=== PATIENT | male | born 1950 | race Caucasian/White ===

== ENCOUNTER 2019-08-31 23:34 | Observation (INO) ==
--- OUTSIDE RECORDS SUMMARY | 2019-08-31 23:37 | External Medical Summary | Continuity of Care Document ---
:1950 Author Name Allan Garduno, Provider Address Unavailable Unavailable , Care Team Providers Name Role Phone Lety Lopez PA-C Unavailable [email or web address] LATASHA ATKINSON Unavailable Unavailable Unavailable Unavailable Unavailable Problems Testicular pain (608.9) (N50.819) Hypertension (401.9) (I10) Squamous cell carcinoma of skin (173.92) (C44.92) Restless legs syndrome (333.94) (G25.81) Disorder of male genital organs (608.9) (N50.9) Allergies and Adverse Reactions Penicillins (Allergy) Medications Omeprazole 20 MG Oral Capsule Delayed Release; TAKE 1 CAPSULE TWICE DAILY. ADRIÁN Lopez Start: 01-May-2012 Refills: 0 Lisinopril 10 MG Oral Tablet ADRIÁN Lopez Start: Refills: 0 rOPINIRole HCl - 1 MG Oral Tablet; TAKE 1 TABLET AT BEDTIME. ADRIÁN Lopez Start: 01-May-2012 Refills: 0 Procedures History of Umbilical Hernia Repair - Over Age 5 Status: Completed History of Inguinal Hernia Repair Status : Completed History of Knee Arthroscopy With Medial And Lateral Meniscus Status: Completed Repair Immunizations Immunizations not documented Social History - Smoking Status Never smoked tobacco Plan of Treatment Planned Observations Planned Goals not documented Results No Known Results Results not documented
--- OUTSIDE RECORDS SUMMARY | 2019-08-31 23:37 | External Medical Summary | Continuity of Care Document ---
:1950 Author Name Allan Garduno, Provider Address Unavailable Unavailable , Care Team Providers Name Role Phone Lety Lopez PA-C Unavailable [email or web address] LATASHA ATKINSON Unavailable Unavailable Unavailable Unavailable Unavailable Problems Testicular pain (608.9) (N50.819) Squamous cell carcinoma of skin (173.92) (C44.92) Restless legs syndrome (333.94) (G25.81) Disorder of male genital organs (608.9) (N50.9) Hypertension (401.9) (I10) Allergies and Adverse Reactions Penicillins (Allergy) Medications [...]
[2019-09-01] MEDS ORDERED: SODIUM CHLORIDE 0.9% 1000ML 1,000 ML IV ONE ×2 (00:13→03:51)
[2019-09-01] MEDS ORDERED: HYDROCODONE/HOMATROPINE SYRUP 5MG/1.5MG 5ML UDP PO STA (00:13)
[2019-09-01] MEDS ORDERED: ALBUT/IPRATROP 3MG/0.5MG NEB 3 ML VIAL NEB ONE (00:13)
[2019-09-01] MEDS ORDERED: methylPREDNISolone 125 MG/2 ML VIAL IV STA (00:13)
[2019-09-01 00:50] LABS: Basophils # (auto) 0.05 K/uL (0-0.2); Basophils % (auto) 0.6 %; Eosinophils # (auto) 0.87 K/uL (0-0.5); Hematocrit (blood only) 45.3 % (42-52); Hemoglobin 15.3 g/dL (14.0-18.0); Immature Granulocytes # (auto) 0.07 K/uL (0.00-0.02); Immature Granulocytes % (auto) 0.8 %; Lymphocytes # (auto) 3.42 K/uL (1.2-3.4); Lymphocytes % (auto) 39.2 %; Mean Corpuscular Hemoglobin 32.4 pg (25-34); Mean Corpuscular Hgb Conc 33.8 g/dL (32-36); Mean Platelet Volume 9.6 fL (7.4-10.4); Monocytes # (auto) 1.03 K/uL (0.11-0.59); Monocytes % (auto) 11.8 %; Neutrophils # (auto) 3.28 K/uL (1.4-6.5); Neutrophils % (auto) 37.6 %; Platelet Count 286 K/uL (130-400); RDW Coefficient of Variation 13.3 % (11.5-14.5); RDW Standard Deviation 46.3 fL (36.4-46.3); Red Blood Count 4.72 M/uL (4.7-6.1); White Blood Count 8.72 K/uL (4.8-10.8)
[2019-09-01 00:57] LABS: Influenza A virus by PCR Neg for Influ A (Neg); Influenza B virus by PCR Neg for Influ B (Neg)
[2019-09-01 01:10] LABS: Base Excess VBG -1.8 mEq/L; pH VBG 7.35 (7.36-7.41)
[2019-09-01 01:15] LABS: Albumin Level 3.5 gm/dl (3.4-5.0); BUN Creatinine Ratio 14.2 (10-20); Calcium 8.1 mg/dl (8.5-10.1); Creatinine Clr Calc Pharmacy 83.4 ml/min; Est GFR (African American) 95.6; Est GFR (Non-African American) 82.5; Magnesium 2.2 mg/dl (1.8-2.4); Potassium 4.4 mmol/L (3.5-5.1)
[2019-09-01 01:26] LABS: Bilirubin,Total 0.4 mg/dl (0.2-1); Total Protein 7.1 gm/dl (6.4-8.2)
[2019-09-01] MEDS ORDERED: AZITHROMYCIN 500 MG in DEXTROSE 5% 250 ML IV ONE (01:39)
[2019-09-01] MEDS ORDERED: cefTRIAXone SODIUM 2,000 MG/70 ML BAG IV STA (01:39)
--- NOTE | 2019-09-01 02:12 | History & Physical Report ---
Date of Service September 01, 2019 Assessment & Plan (1) Bronchitis, complicated: Protracted symptoms No sepsis Troponin elevation secondary to illness hypertension, stable GERD, stable past tobacco abuse OBS Medical telemetry Trend troponin TTE RE abnormal troponin Doxycycline, nebs, prednisone course Pulmonary consult if without improvement RE protracted bronchitis DVT prophylaxis. Lovenox subcu Full code Text document was generated using [employer] voice recognition software. It may contain grammatical or spelling errors. Kindly contact undersigned for clarification of any documentation item in question. . History of Present Illness Chief Complaint: Cough, S OB Primary Care Provider: Imtiaz Will DO History obtained from patient and records. Medical history significant for hypertension, hyperlipidemia, GERD, restless leg syndrome, possible SRIDHAR, past tobacco abuse. Recent confinement July 2016 for syncope attributed to alcohol intake. Patient seen at PCPs office May 2019 for sinusitis symptoms. Patient prescribed Z-Galdino, Mucinex, fluticasone course which never fully relieved symptoms. Denies aspiration or uncontrolled GERD symptoms. The last 2 weeks patient noted worsening junky cough symptoms with shortness of breath. No actual chest pain. No known sick contacts. At the ER, patient received Solu-Medrol, nebs, azithromycin for bronchitis. Medical History as above Surgical History : Dental surgery, hernia repair, umbilical hernia repair, knee surgery Family History : Skin cancer, diabetes Personal/Social history : Past tobacco abuse, occasional EtOH intake, retired from retail store employment Allergies Allergy/AdvReac Type Severity Reaction Status Date / Time Penicillins Allergy Unknown RASH Verified 09/01/19 01:34 Home Medications Home Medications Medication Instructions Recorded Confirmed Type clonazepam 0.5 - 1 mg PO HS PRN 09/01/19 09/01/19 History lisinopril-hydrochlorothiazide 1 tab PO DAILY 09/01/19 09/01/19 History omeprazole 40 mg PO DAILY 09/01/19 09/01/19 History ropinirole 2 mg PO HS 09/01/19 09/01/19 History Past Med/Surg History Medical History Hypertension (Chronic) Surgical History No pertinent past surgical history Social History Preferred Language: Portuguese Communication Ability: Effective Revenue Investigator Required: No Beliefs That Will Affect Care: None Feels Safe at Home: Yes Smoking Status: Current every day smoker Tobacco Type: cigars ; Cigarettes Per Day: 3 ; Tobacco Cessation Education Requested by Patient: No Hx Alcohol Use: Yes Alcohol type: hard liquor Hx Substance Use: No Review of Systems Review of Systems: As per HPI, all 10 systems reviewed, all other ROS negative Physical Exam Physical Exam: GENERAL: Comfortable,, pleasant, slightly anxious, no respiratory distress SKIN: Normal color, warm HEENT: Pease palpebral conjunctivae, no ptosis, dry buccal mucosa, O2 mask in place NECK : Supple, short neck, no tenderness CHEST : Decreased breath sounds, no tenderness HEART : RRR, no obvious murmurs ABDOMEN: Some distention, nontender EXTREMITIES : No LE swelling/tenderness, no other conspicuous deformities noted NEUROLOGIC : Coherent, no facial asymmetry, no other gross focality Results & Data Vital Signs (Past 12 Hours) Vital Signs Temp Pulse Pulse Pulse Resp BP BP 09/01/19 01:31 71 20 124/63 09/01/19 00:47 67 24 127/71 09/01/19 00:40 68 16 09/01/19 00:19 71 24 116/64 08/31/19 23:42 36.7 C 84 22 151/76 H Pulse Ox 09/01/19 01:31 98 09/01/19 00:47 98 09/01/19 00:40 96 09/01/19 00:19 93 08/31/19 23:42 96 Laboratory Results Laboratory Results WBC 8.72 K/uL (4.8-10.8) 09/01/19 00:36 RBC 4.72 M/uL (4.7-6.1) 09/01/19 00:36 Hgb 15.3 g/dL (14.0-18.0) 09/01/19 00:36 Hct 45.3 % (42-52) 09/01/19 00:36 MCV 96.0 fL (80-100) 09/01/19 00:36 MCH 32.4 pg (25-34) 09/01/19 00:36 MCHC 33.8 g/dL (32-36) 09/01/19 00:36 RDW Std Deviation 46.3 fL (36.4-46.3) 09/01/19 00:36 RDW Coeff of Geoffrey 13.3 % (11.5-14.5) 09/01/19 00:36 Plt Count 286 K/uL (130-400) 09/01/19 00:36 MPV 9.6 fL (7.4-10.4) 09/01/19 00:36 Immature Gran % (Auto) 0.8 % 09/01/19 00:36 Neut % (Auto) 37.6 % 09/01/19 00:36 Lymph % (Auto) 39.2 % 09/01/19 00:36 [place] % (Auto) 11.8 % 09/01/19 00:36 Eos % (Auto) 10.0 % 09/01/19 00:36 Baso % (Auto) 0.6 % 09/01/19 00:36 Immature Gran # (Auto) 0.07 K/uL (0.00-0.02) H 09/01/19 00:36 Neut # (Auto) 3.28 K/uL (1.4-6.5) 09/01/19 00:36 Lymph # (Auto) 3.42 K/uL (1.2-3.4) H 09/01/19 00:36 [place] # (Auto) 1.03 K/uL (0.11-0.59) H 09/01/19 00:36 Eos # (Auto) 0.87 K/uL (0-0.5) H 09/01/19 00:36 Baso # (Auto) 0.05 K/uL (0-0.2) 09/01/19 00:36 VBG pH 7.35 (7.36-7.41) L 09/01/19 00:57 VBG pCO2 44 mmHg (38-50) 09/01/19 00:57 VBG pO2 57 mmHg 09/01/19 00:57 VBG HCO3 24 mmol/L 09/01/19 00:57 VBG O2 Saturation 89.0 % 09/01/19 00:57 VBG Base Excess -1.8 mEq/L 09/01/19 00:57 Barometric Pressure 726.4 mm/Hg 09/01/19 00:57 Sodium 138 mmol/L (136-145) 09/01/19 00:36 Potassium 4.4 mmol/L (3.5-5.1) 09/01/19 00:36 Chloride 107 mmol/L (98-107) 09/01/19 00:36 Carbon Dioxide 23 mmol/L (21-32) 09/01/19 00:36 Anion Gap 8.0 (3-11) 09/01/19 00:36 BUN 14 mg/dl (7-18) 09/01/19 00:36 Creatinine 0.95 mg/dl (0.6-1.4) 09/01/19 00:36 Est Cr Clr Drug Dosing 83.4 ml/min 09/01/19 00:36 Est GFR ( Amer) 95.6 09/01/19 00:36 Est GFR (Non-Af Amer) 82.5 09/01/19 00:36 BUN/Creatinine Ratio 14.2 (10-20) 09/01/19 00:36 Glucose 101 mg/dl (70-99) H 09/01/19 00:36 Lactate 1.5 mmol/L (0.4-2.0) 09/01/19 00:36 Calcium 8.1 mg/dl (8.5-10.1) L 09/01/19 00:36 Magnesium 2.2 mg/dl (1.8-2.4) 09/01/19 00:36 Total Bilirubin 0.4 mg/dl (0.2-1) 09/01/19 00:36 Direct Bilirubin mg/dl (0-0.2) 09/01/19 00:36 AST 44 U/L (15-37) H 09/01/19 00:36 ALT 36 U/L (12-78) 09/01/19 00:36 Alkaline Phosphatase 74 U/L (45-117) 09/01/19 00:36 Troponin I ng/ml (0-0.045) 09/01/19 00:36 Total Protein 7.1 gm/dl (6.4-8.2) 09/01/19 00:36 Albumin 3.5 gm/dl (3.4-5.0) 09/01/19 00:36 Specimen Hemolysis 09/01/19 00:36 Influenza Type A (PCR) Neg for Influ A (Neg) 09/01/19 00:15 Influenza Type B (PCR) Neg for Influ B (Neg) 09/01/19 00:15 Diagnostic Findings Chest initial read: No pulmonary emboli. Mild diffuse bronchial wall thickening suggesting bronchitis. Atelectasis versus early infiltrate. No pneumothorax or pleural effusion. EKG as per my interpretation: Rate 70, NSR, normal axis, no ischemia
[2019-09-01] MEDS ORDERED: PNEUMOCOCCAL ADMINISTRATION CHARGE ONE (02:15)
[2019-09-01] MEDS ORDERED: PNEUMOCOCCAL POLYSACCHARIDES 25 MCG/0.5 ML VIAL/SYR IM ONE (02:15)
[2019-09-01 03:04] LABS: Partial Thromboplastin Time 26.9 Seconds (21.0-31.0); Prothrombin Time 9.8 Seconds (9.0-12.0)
[2019-09-01 03:07] LABS: Troponin I 0.088 ng/ml (0-0.045)
[2019-09-01] MEDS ORDERED: OPTIRAY 320 125ml IV PRN (03:33)
[2019-09-01] MEDS ORDERED: TRAMADOL HCL 50 MG TABLET PO PRN (03:51)
[2019-09-01] MEDS ORDERED: PROMETHAZINE HCL 12.5 MG in SODIUM CHLORIDE 0.9% 50 ML IV PRN (03:51)
[2019-09-01] MEDS ORDERED: ACETAMINOPHEN 325 MG TAB PO PRN (03:51)
[2019-09-01] MEDS ORDERED: DOXYCYCLINE HYCLATE 100 MG in DEXTROSE 5% 100 ML IV STA (03:51)
[2019-09-01] MEDS ORDERED: CALCIUM GLUCONATE 10% 1,000 MG in SODIUM CHLORIDE 0.9% 50 ML IV STA (05:21)
[2019-09-01] MEDS ORDERED: lisinopriL 20 MG TAB PO SCH ×2 (05:30→09:00)
--- NOTE | 2019-09-01 06:12 | Emergency Department Note ---
Entered by Juliana Interiano acting as a scribe for Roger Payne MD ED Provider Note Name: MARISOL HINSON Age: 69 Arrives Via: Walk-In Informant: Patient CC: Cough HPI: 69M arrives for evaluation of cough that worsened over the past few days. The patient notes that he has been intermittently sick for the past few months, but over the past few days it seemed to worsen. He complains of cough with sputum and congestion with runny nose. He also notes that he has been running a fever. The patient has been smoking cigars for about a year, and denies history of lung issues. The patient takes Lisinopril for hypertension. The patient denies chest pain. The patient confirms that he did get a flu shot this year. He has not travelled anywhere recently. He notes that he was drinking alcohol earlier tonight. ROS: See above HPI for pertinent positives & negatives. A total of 10 systems reviewed and were otherwise negative. Past Medical History:Hypertension, GERD, DLP, Restless Legs Past Surgical History:No past surgical history Family History:No pertinent past surgical history Social History:Smokes cigars, nightly etoh, retired Home Medications:See Below Allergies:Penicillins Vitals:BP: 151/76 Pulse: 84 Resp: 22 Temp: 36.7 O2 Sat: 96 Physical Exam: GENERAL: Patient is significantly ill appearing and in moderate distress. Smells slightly of alcohol. EYES: No scleral icterus, unremarkable pupils. ENT: Mucous membranes moist, no nasal congestion. NECK: No masses appreciated, nomeningismus, trachea is midline. RESPIRATORY: Diffuse wheezing with very tight lung sound. Productive cough. Dyspneic. CARDIOVASCULAR: Regular rate and rhythm.No murmurs, rubs, gallops appreciated. GASTROINTESTINAL: Abdomen soft, non-tender, no peritonitis.Bowel sounds positive.No masses appreciated. BACK: No midline tenderness, no CVA tenderness EXTREMITIES: Normal motion all extremities, no cyanosis, no edema. NEUROLOGIC: Alert and oriented, no acute motor or sensory deficits, no focal weakness, cranial nerves grossly intact. SKIN: No rash, no jaundice, no diaphoresis. ED Course: Prior Medical Record, Triage/Nursing Notes, Medications, Allergies reviewed by Me Vital Signs: reviewed and remarkable for HTN Labs:Reviewed and remarkable for +troponin Interventions: saline lock,nss bolus, duoneb 1 hr, solumedrol 125mg IV, rocephin 2 gm IV, azithromycin 500mg IV, asa 324mg PO Imaging:X ray results are stated below per my interpretation: Chest: 1 view: Poor inspiratory effort, bilateral congestion no lobar loculations. large mediastinum likely position and similar to previous EKG:Per My Interpretation: Indication SHOB: NSR 72 bpm, qtc 433. No Ectopy. No Ischemia. No previous for comparison Agriculture Teacher: An Order was placed for continuous cardiac monitoring. The monitor shows a rate of 70 with a normal sinus rhythm. Reassessments/Times: 0008: Past medical records reviewed. The patient was evaluated in room A03. A complete history and physical exam was performed. 0103: I rechecked on the patient who is feeling some improvement, but still has diffuse loud wheezing and is mildly dyspneic. 0137: The patient still has poor lung sounds. 0140: I spoke to Dr. aSldivar, [facility] hospitalist, who is aware of the patients condition. The patient is agreeable to staying in the hospital and understands the treatment plan. The patient will stay for further evaluation. Blood pressure:Normal.No Referral necessary Disposition:Admit Prescriptions:None. Differentials:Differential diagnosis includes: infections, reactive airway disease, pneumonia, pneumothorax, COPD, CHF, cardiac ischemia, pulmonary embolism, musculoskeletal, gastrointestinal, as well as others were entertained. Medical Decision Makin yr old male with history HTN, DLP, GERD, Restless legs arrives with acute respiratory distress. Not significantly hypoxic but very poor lung sounds and clearly dyspneic. CXR without clear evidence pneumonia though poor inspiratory effort. Labs with normal WBC and without fever nor lactic acidosis no signs sepsis at this time. With exam and history patient clearly with complicated bronchitis. This is further complicated by elevated troponin. I suspect this is type 2 NSTEMI form respiratory issues and will start ASA and defer heparin decision to hospitalist given minimal trop elevation at this time, normal EKG, and no chest pains whatsoever. Patient does not have PE risk factors and is low risk thus will hold off on cta. Empiric CAP abx given here along with IV steroids. Hospitalist consutled for further management. Impression: Bronchitis, complicated Elevated troponin The scribe's documentation has been prepared under my direction and personally reviewed by me in its entirety. I confirm that the note above accurately reflects all work, treatment, procedures, and medical decision making performed by me. Roger Payne MD Impression & Plan Bronchitis, complicated, Elevated troponin Past Med/Surg History Medical History Hypertension (Chronic) Surgical History No pertinent past surgical history Social History Preferred Language: Turkish Communication Ability: Effective Recruiter Coordinator Required: No Beliefs That Will Affect Care: None Feels Safe at Home: Yes Smoking Status: Current every day smoker Tobacco Type: cigars ; Cigarettes Per Day: 3 ; Tobacco Cessation Education Requested by Patient: No Hx Alcohol Use: Yes Alcohol type: hard liquor Hx Substance Use: No Results & Data Vital Signs Vital Signs - 24 hr 08/31/19 23:42 09/01/19 00:19 09/01/19 00:40 Temperature 36.7 C Temperature Source Oral Pulse Rate 84 Pulse Rate [Bilateral Apical] 71 Pulse Rate [Right Finger] 68 Respiratory Rate 22 24 16 Respiratory Effort / Characteristics Non-Labored Spontaneous Non-Labored Spontaneous Respiratory Depth Normal Respiratory Pattern Regular Blood Pressure 151/76 H Blood Pressure [Left Arm] 116/64 Blood Pressure Mean 101 Blood Pressure Mean [Left Arm] 81 Blood Pressure Position Sitting Pulse Oximetry 96 93 96 Oxygen Delivery Method Room Air Room Air Room Air Sepsis Recent Fever Within 48 Hours No Sepsis New/Unexplained Change in Mental Status No Sepsis Action Taken by Nursing No Action Required 09/01/19 00:47 09/01/19 01:31 Temperature Temperature Source Pulse Rate Pulse Rate [Bilateral Apical] 67 71 Pulse Rate [Right Finger] Respiratory Rate 24 20 Respiratory Effort / Characteristics Respiratory Depth Respiratory Pattern Blood Pressure Blood Pressure [Left Arm] 127/71 124/63 Blood Pressure Mean Blood Pressure Mean [Left Arm] 89 83 Blood Pressure Position Pulse Oximetry 98 98 Oxygen Delivery Method Nebulizer Sepsis Recent Fever Within 48 Hours Sepsis New/Unexplained Change in Mental Status Sepsis Action Taken by Longterm Medications Current Medication List: was personally reviewed by me Laboratory Data Attestation: I reviewed the patient's lab results. Result diagrams: 09/01/19 00:36 09/01/19 00:36 Lab Results 09/01/19 09/01/1908/31/20 Range/Units 00:15 00:36 00:36 WBC 8.72 (4.8-10.8) K/uL RBC 4.72 (4.7-6.1) M/uL Hgb 15.3 (14.0-18.0) g/dL Hct 45.3 (42-52) % MCV 96.0 (80-100) fL MCH 32.4 (25-34) pg MCHC 33.8 (32-36) g/dL RDW Std Deviation 46.3 (36.4-46.3) fL RDW Coeff of Geoffrey 13.3 (11.5-14.5) % Plt Count 286 (130-400) K/uL MPV 9.6 (7.4-10.4) fL Immature Gran % (Auto) 0.8 % Neut % (Auto) 37.6 % Lymph % (Auto) 39.2 % [place] % (Auto) 11.8 % Eos % (Auto) 10.0 % Baso % (Auto) 0.6 % Immature Gran # (Auto) 0.07 H (0.00-0.02) K/uL Neut # (Auto) 3.28 (1.4-6.5) K/uL Lymph # (Auto) 3.42 H (1.2-3.4) K/uL [place] # (Auto) 1.03 H (0.11-0.59) K/uL Eos # (Auto) 0.87 H (0-0.5) K/uL Baso # (Auto) 0.05 (0-0.2) K/uL PT (9.0-12.0) Seconds INR (0.9-1.1) APTT (21.0-31.0) Seconds PTT Ratio VBG pH (7.36-7.41) VBG pCO2 (38-50) mmHg VBG pO2 mmHg VBG HCO3 mmol/L VBG O2 Saturation % VBG Base Excess mEq/L Barometric Pressure mm/Hg Sodium 138 (136-145) mmol/L Potassium 4.4 (3.5-5.1) mmol/L Chloride 107 (98-107) mmol/L Carbon Dioxide 23 (21-32) mmol/L Anion Gap 8.0 (3-11) BUN 14 (7-18) mg/dl Creatinine 0.95 (0.6-1.4) mg/dl Est Cr Clr Drug Dosing 83.4 ml/min Est GFR ( Amer) 95.6 Est GFR (Non-Af Amer) 82.5 BUN/Creatinine Ratio 14.2 (10-20) Glucose 101 H (70-99) mg/dl Lactate (0.4-2.0) mmol/L Calcium 8.1 L (8.5-10.1) mg/dl Magnesium 2.2 (1.8-2.4) mg/dl Total Bilirubin 0.4 (0.2-1) mg/dl Direct Bilirubin (0-0.2) mg/dl AST 44 H (15-37) U/L ALT 36 (12-78) U/L Alkaline Phosphatase 74 (45-117) U/L Troponin I 0.088 H* (0-0.045) ng/ml Total Protein 7.1 (6.4-8.2) gm/dl Albumin 3.5 (3.4-5.0) gm/dl Specimen Hemolysis Influenza Type A (PCR) Neg for Influ A (Neg) Influenza Type B (PCR) Neg for Influ B (Neg) 09/01/19 09/01/19 09/01/19 Range/Units 00:36 00:36 00:57 WBC (4.8-10.8) K/uL RBC (4.7-6.1) M/uL Hgb (14.0-18.0) g/dL Hct (42-52) % MCV (80-100) fL MCH (25-34) pg MCHC (32-36) g/dL RDW Std Deviation (36.4-46.3) fL RDW Coeff of Geoffrey (11.5-14.5) % Plt Count (130-400) K/uL MPV (7.4-10.4) fL Immature Gran % (Auto) % Neut % (Auto) % Lymph % (Auto) % [place] % (Auto) % Eos % (Auto) % Baso % (Auto) % Immature Gran # (Auto) (0.00-0.02) K/uL Neut # (Auto) (1.4-6.5) K/uL Lymph # (Auto) (1.2-3.4) K/uL [place] # (Auto) (0.11-0.59) K/uL Eos # (Auto) (0-0.5) K/uL Baso # (Auto) (0-0.2) K/uL PT 9.8 (9.0-12.0) Seconds INR 1.0 (0.9-1.1) APTT 26.9 (21.0-31.0) Seconds PTT Ratio 1.0 VBG pH 7.35 L (7.36-7.41) VBG pCO2 44 (38-50) mmHg VBG pO2 57 mmHg VBG HCO3 24 mmol/L VBG O2 Saturation 89.0 % VBG Base Excess -1.8 mEq/L Barometric Pressure 726.4 mm/Hg Sodium (136-145) mmol/L Potassium (3.5-5.1) mmol/L Chloride (98-107) mmol/L Carbon Dioxide (21-32) mmol/L Anion Gap (3-11) BUN (7-18) mg/dl Creatinine (0.6-1.4) mg/dl Est Cr Clr Drug Dosing ml/min Est GFR ( Amer) Est GFR (Non-Af Amer) BUN/Creatinine Ratio (10-20) Glucose (70-99) mg/dl Lactate 1.5 (0.4-2.0) mmol/L Calcium (8.5-10.1) mg/dl Magnesium (1.8-2.4) mg/dl Total Bilirubin (0.2-1) mg/dl Direct Bilirubin (0-0.2) mg/dl AST (15-37) U/L ALT (12-78) U/L Alkaline Phosphatase (45-117) U/L Troponin I (0-0.045) ng/ml Total Protein (6.4-8.2) gm/dl Albumin (3.4-5.0) gm/dl Specimen Hemolysis Influenza Type A (PCR) (Neg) Influenza Type B (PCR) (Neg) Administered Medications Discontinued Medications Albuterol (Duoneb) 12 ml NEB ONE ONE Stop: 09/01/19 00:14 Last Admin: 09/01/19 00:40 Dose: 12 ml Documented by: [id number] Enoxaparin Sodium (Lovenox) 40 [facility] [place] Stop: 10/01/19 08:59 Last Admin: 09/01/19 08:00 Dose: 40 mg Documented by: [id number] Hydrocodone Bit/Homatropine Methylb (Hycodan) 5 ml PO NOW STA Stop: 09/01/19 00:14 Last Admin: 09/01/19 00:30 Dose: 5 ml Documented by: [id number] Sodium Chloride (Nss 1000ml) 1,000 mls @ 999 mls/hr IV .[id number] ONE Stop: 09/01/19 01:13 Last Infusion: 09/01/19 01:30 Dose: 0 mls/hr Documented by: [id number] Admin: 09/01/19 00:43 Dose: 999 mls/hr Documented by: [id number] Ceftriaxone Sodium (Rocephin) 2,000 mg in 70 mls @ 140 mls/hr IV NOW STA Stop: 09/01/19 02:08 Last Infusion: 09/01/19 02:24 Dose: 0 mls/hr Documented by: [id number] Admin: 09/01/19 02:03 Dose: 140 mls/hr Documented by: [id number] Azithromycin 500 mg/ Dextrose 255 mls @ 125 mls/hr IV ONE ONE Stop: 09/01/19 03:41 Last Infusion: 09/01/19 05:02 Dose: 0 mls/hr Documented by: [id number] Admin: 09/01/19 02:18 Dose: 125 mls/hr Documented by: [id number] Sodium Chloride (Nss 1000ml) 1,000 mls @ 60 mls/hr IV .[id number] ONE Stop: 09/01/19 20:30 Last Admin: 09/01/19 04:01 Dose: 60 mls/hr Documented by: [id number] Doxycycline Hyclate 100 mg/ (Dextrose) 110 mls @ 50 mls/hr IV NOW STA Stop: 09/01/19 06:02 Last Infusion: 09/01/19 07:07 Dose: 0 mls/hr Documented by: [id number] Admin: 09/01/19 04:50 Dose: 50 mls/hr Documented by: [id number] Calcium Gluconate 1,000 mg/ (Sodium Chloride) 60 mls @ 240 mls/hr IV NOW STA Stop: 09/01/19 05:35 Last Infusion: 09/01/19 06:30 Dose: 0 mls/hr Documented by: [id number] Admin: 09/01/19 05:53 Dose: 240 mls/hr Documented by: [id number] Ioversol (Optiray 320 125ml) 125 ml IV ONCE PRN PRN Reason: Interaction Checking Stop: 09/05/19 03:32 Last Admin: 09/01/19 03:33 Dose: 104 ml Documented by: [id number] Ipratropium [place] (Atrovent 0.02% 0.5mg/2.5ml) 0.5 mg INH Q6R [facility] Stop: 10/01/19 06:59 Last Admin: 09/01/19 07:05 Dose: 0.5 mg Documented by: [id number] Levalbuterol HCl (Xopenex 1.25mg/0.5ml Neb) 1.25 mg INH Q6R [facility] Stop: 10/01/19 06:59 Last Admin: 09/01/19 07:05 Dose: 1.25 mg Documented by: [id number] Lisinopril (Zestril) 20 mg PO QAM [facility] Stop: 10/01/19 05:29 Last Admin: 09/01/19 05:54 Dose: 20 mg Documented by: [id number] Methylprednisolone (Solumedrol) 125 mg IV NOW STA Stop: 09/01/19 00:14 Last Admin: 09/01/19 00:43 Dose: 125 mg Documented by: [id number] Pantoprazole Sodium (Protonix) 40 mg PO DAILY [facility] Stop: 10/01/19 08:59 Last Admin: 09/01/19 07:59 Dose: 40 mg Documented by: [id number] Pneumococcal Polyvalent Vaccine (Pneumovax-23) 25 mcg IM .ONCE ONE Stop: 09/01/19 02:16 Last Admin: 09/01/19 10:53 Dose: Not Given Documented by: [id number] Prednisone (Prednisone) 40 mg PO DAILY [facility] Stop: 09/05/19 08:59 Last Admin: 09/01/19 07:59 Dose: 40 mg Documented by: [id number] Blood Pressure Blood Pressure Findings: Normal blood pressure Blood Pressure Disposition: did not require urgent referral Discharge Plan Visit Data *Final* Discharge Date/Time: 09/01/19 02:52 Chief Complaint: Cough Stated Complaint: COUGH ED Provider: Roger Payne Discharge Problem: Bronchitis, complicated, Elevated troponin Patient Disposition: Admitted As Inpatient Condition: Good Discharge Instructions Interventions: ED Discharge Assessment Last Done: 09/01/19 02:52 The scribe's documentation has been prepared under my direction and personally reviewed by me in its entirety. I confirm that the note above accurately reflects all work, treatment, procedures, and medical decision making performed by me.
--- NOTE | 2019-09-01 06:59 | XRay Report ---
XR chest 1V portable CLINICAL HISTORY: 69 years-old Male presenting with shortness of breath. TECHNIQUE: Portable upright AP view of the chest was obtained. COMPARISON: 07/13/2016. FINDINGS: Atherosclerosis of the aortic arch. Tortuosity and prominence of the ascending aorta. Cardiac silhoue tte normal in size. Mildly low lung volumes. Elevation of the hemidiaphragms. No focal opacity. No la rge effusion or pneumothorax. Mild degenerative changes of the spine and left AC joint. Upper abdomen normal. IMPRESSION: 1. Mildly low lung volumes. 2. Prominence of the ascending thoracic aorta. ACT 112: Negative or not required by law. Electronically signed by: Dylan Maurice M.D. 09/01/2019 6:58 AM
[2019-09-01] MEDS ORDERED: XOPENEX/ATROVENT 1.25mg/0.5MG NEB COMBO NEB SCH (07:00)
[2019-09-01] MEDS ORDERED: LEVALBUTEROL 1.25MG/0.5ML NEB INH SCH (07:00)
[2019-09-01] MEDS ORDERED: IPRATROPIUM BROMIDE NEB SOLN 0.02% 2.5 ML VIAL INH SCH (07:00)
--- NOTE | 2019-09-01 08:07 | CT Scan Report ---
CHEST CTA for PULMONARY ARTERIES CT DOSE: 623.93 mGy.cm HISTORY: Cough. Atypical chest pain. TECHNIQUE: Multiaxial CT images of the chest were performed following the intravenous administration of contrast to evaluate the pulmonary arteries. Maximal intensity projection images were also obtaine d. A dose lowering technique was utilized adhering to the principles of ALARA. COMPARISON STUDY: Chest 09/01/2019. FINDINGS: Mild calcified plaque within the normal caliber thoracic aorta. No evidence for an aortic d issection. The heart is normal in size. No pleural or pericardial effusions. No filling defects withi n the pulmonary arteries to suggest pulmonary embolus. No suspicious lytic or blastic osseous lesions . Limited views of the upper abdomen demonstrate a normal spleen and right adrenal gland. The left ad renal gland is not identified. There is a 2 cm hypodense lesion within the left hepatic dome. This ma y represent a cyst. No mediastinal or hilar lymphadenopathy. Normal esophagus. No pneumothorax. Mild central bronchial wall thickening. A few bibasilar linear densities consistent with subsegmental atel ectasis. Small focus of tree-in-bud nodular opacities within the base of the right lower lobe best se en on images 71 through 93. This favors a mild infectious bronchiolitis. IMPRESSION: 1. No evidence for pulmonary embolus. 2. Small focus of tree-in-bud nodular opacities within the base of the right lower lobe. This favors a mild infectious bronchiolitis. 3. Mild central bronchial wall thickening suggestive of a bronchitis. ACT 112: Negative or not required by law. Electronically signed by: Donovan Delcid M.D. 09/01/2019 8:06 AM
[2019-09-01] MEDS ORDERED: predniSONE 20 MG TAB PO SCH (09:00)
[2019-09-01] MEDS ORDERED: PANTOprazole 40 MG TAB PO SCH (09:00)
[2019-09-01] MEDS ORDERED: ENOXAPARIN INJ 40 MG/0.4 ML SYR SQ SCH (09:00)
--- NOTE | 2019-09-01 10:09 | Discharge Summary ---
Date of Service September 01, 2019 Admission HPI Per Admitting Provider History obtained from patient and records. Medical history significant for hypertension, hyperlipidemia, GERD, restless leg syndrome, possible SRIDHAR, past tobacco abuse. Recent confinement July 2016 for syncope attributed to alcohol intake. Patient seen at PCPs office May 2019 for sinusitis symptoms. Patient prescribed Z-Galdino, Mucinex, fluticasone course which never fully relieved symptoms. Denies aspiration or uncontrolled GERD symptoms. The last 2 weeks patient noted worsening junky cough symptoms with shortness of breath. No actual chest pain. No known sick contacts. At the ER, patient received Solu-Medrol, nebs, azithromycin for bronchitis. Medical History as above Surgical History : Dental surgery, hernia repair, umbilical hernia repair, knee surgery Family History : Skin cancer, diabetes Personal/Social history : Past tobacco abuse, occasional EtOH intake, retired from retail store employment Admission Exam Per Admitting Provider GENERAL: Comfortable,, pleasant, slightly anxious, no respiratory distress SKIN: Normal color, warm HEENT: [place] palpebral conjunctivae, no ptosis, dry buccal mucosa, O2 mask in place NECK : Supple, short neck, no tenderness CHEST : Decreased breath sounds, no tenderness HEART : RRR, no obvious murmurs ABDOMEN: Some distention, nontender EXTREMITIES : No LE swelling/tenderness, no other conspicuous deformities noted NEUROLOGIC : Coherent, no facial asymmetry, no other gross focality Principal Diagnosis Bronchiolitis Discharge Exam ROS-No Headache, No Visual Changes, No Nausea, No Vomiting, No Fever, No Chills, No Neck Pain or Stiffness, No Chest Pain, No Palpitations, No SOB, No ALMEIDA, No Cough, No Sputum, No Wheezing, No Abdominal Pain, No Diarrhea, No Hematemesis, No Hemoptysis, No Unexpected Weight Loss, No Flank pain, No Melena, No Hematochezia, No Frequency, No Urgency, No Burning, No Hematuria, No Rashes, No Diaphoresis. Appetite is Normal Physical Exam Gen-AAO x 3, NAD, Afebrile Head-NCAT, EOMI, PERRLA, Anicteric Sclera, No Posterior Pharyngeal Erythema Neck-Supple, No JVD, No Thyromegaly, No Masses, No LAD, No Bruits Lungs-Clear to Auscultation Bilaterally, No Rales, No Rhonchi, No Wheezing, No Crepitus Chest-No S4, +S1, +S2, No S3, No Murmurs, No Rubs, No Gallops, No Ectopy Abdomen-Soft, Bowel Sounds Present, Non Tender, Non Distended, No Hepatomegaly, No Splenomegaly, No Palpable Masses, No Rebound, No Rigidity, No Guarding Musculoskeletal-Full Range of Motion Bilaterally, No CVAT Extremities-No Cyanosis, No Clubbing, No Edema Nuero-Cranial Nerves II-XII grossly intact, Motor WNL, DTRs WNL, Strength WNL, Non Focal Psych-Normal Mood Discharge Data Allergies Allergy/AdvReac Type Severity Reaction Status Date / Time Penicillins Allergy Unknown RASH Verified 09/01/19 01:34 Consultations 09/01/19 01:40 ED Decision to Admit Stat Ordered Studies 09/01/19 02:12 CT angio chest PE protocol Urgent IMPRESSION: 1. No evidence for pulmonary embolus. 2. Small focus of tree-in-bud nodular opacities within the base of the right lower lobe. This favors a mild infectious bronchiolitis. 3. Mild central bronchial wall thickening suggestive of a bronchitis. Hospital Course (1) Bronchitis, complicated: Protracted symptoms No sepsis Troponin elevation secondary to illness, Stable hypertension, stable GERD, stable past tobacco abuse Doxycycline, Omnicef x 10 days, Albuterol, prednisone course Total Time Total Time Spent Total Time Spent (In Minutes): 45 mins Total Time Includes: Examination of the Patient, Discharge Planning, Medication Reconciliation and Communication With Other Providers Discharge Plan Discharge Items Patient Disposition: Home - Self-Care Reason For Visit: SOB Discharge Diagnosis: Bronchiolitis Condition on Discharge: Good Activity: Resume your previous activity Lifting: None and Gradually increase as tolerated Bathing: No limitations Sexual Activity: When tolerated Exercise/Sports: Gradually increase as tolerated Driving/Machine Use: No limitations Weightbearing: Full weightbearing Non-emergency contact: Primary Care Provider Call non-emergency contact if: you have any medication questions Follow-up/Referrals: Imtiaz Will DO [Primary Care Provider] - 09/07/19 12:45 pm (Please call either [phone] or [phone] if you need to reschedule. ) Diet: Regular Addtl Attending Provider Instructions: None Pending Studies at Discharge: No Stand-Alone Forms: [employer], Smoking Cessation Medications and DC Order Prescriptions: New doxycycline monohydrate 100 mg tablet 100 mg PO BID 10 Days Qty: 20 RF: 0 cefdinir 300 mg capsule 300 mg PO Q12H 10 Days Qty: 20 RF: 0 albuterol sulfate 90 mcg/actuation aero powdr breath act w/sensor 2 puffs INH Q6H PRN (Reason: shortness of breath or wheezing) Qty: 1 RF: 0 prednisone 10 mg tablet 10 mg PO DAILY Qty: 42 RF: 0 dextromethorphan-guaifenesin [Mucinex DM] 60-1,200 mg tablet extended release 12 hr 1 tab PO HS Qty: 30 RF: 0 pseudoephedrine-guaifenesin [Mucinex D] 60-600 mg tablet extended release 12 hr 1 tab PO QAM Qty: 30 RF: 0 No Action lisinopril-hydrochlorothiazide 20-12.5 mg tablet 1 tab PO DAILY RF: 0 clonazepam 0.5 mg tablet 0.5 - 1 mg PO HS PRN (Reason: restlessness) RF: 0 omeprazole 40 mg capsule,delayed release(DR/EC) 40 mg PO DAILY RF: 0 ropinirole 2 mg tablet 2 mg PO HS RF: 0 Discharge Orders: Discharge Order (Routine); Ordered 09/01/19 Ordered By: Rigo Lu Admission Data Admit Date/Time: 09/01/19 02:15 Attending Provider: Rigo Lu Admit Provider: Que Saldivar Primary Care Provider: Imtiaz Will Other Providers: Que Saldivar
--- NOTE | 2019-09-01 10:57 | Electrocardiogram Report ---
Test Reason : Blood Pressure : / mmHG Vent. Rate : 072 BPM Atrial Rate : 072 BPM P-R Int : 176 ms QRS Dur : 086 ms QT Int : 396 ms P-R-T Axes : 029 006 060 degrees QTc Int : 433 ms Poor data quality, interpretation may be adversely affected Normal sinus rhythm Normal ECG When compared with ECG of 13-JUL-2016 22:40, No significant change was found Confirmed by Austin Pearson ([id number]) on 09/01/2019 10:56:52 AM Referred By: REFERRED SELF Confirmed By:Austin Pearson
[2019-09-01] MEDS ORDERED: ROPINIROLE HCL 1 MG TABLET PO SCH (21:00)
[2019-09-01] MEDS ORDERED: DOXYCYCLINE HYCLATE 100 MG CAP PO SCH (21:00)
== END 2019-09-01 11:17 | disposition home or self-care (01) ==
LOC: 2N 23:34 → ED 23:34 → 2N 09-01 02:52